=== PATIENT | male | born 1970 | race African-American/Black ===

== ENCOUNTER 2017-03-21 12:47 | Inpatient (IN) | payer OTHER ==
[2017-03-21] MEDS ORDERED: LORazepam INJ* 2 MG/ML 1 ML VIAL IV PUSH ONE (13:09)
[2017-03-21 13:18] LABS: ABS Basophils 0 10^3/ul (0-0.2); ABS Eosinophils 0.3 10^3/ul (0-0.6); ABS Lymphocytes 2.9 10^3/ul (1.0-4.8); ABS Monocytes 0.7 10^3/ul (0-0.8); ABS Neutrophils 8.8 10^3/ul (1.5-7.7); ABS Nucleated RBC 0.01 10^3/ul; Eosinophil % 2.6 % (0-6); Hematocrit 41 % (42-52); Hemoglobin 13.7 g/dl (14.0-18.0); Lymphocyte % 22.6 % (25-47); Mean Corpuscular HGB Conc 34 g/dl (31-36); Mean Corpuscular Hemoglobin 34 pg (27-31); Mean Corpuscular Volume 102 fL (80-94); Mean Platelet Volume 8 um3 (7.4-10.4); Nucleated Red Blood Cells % 0; Platelet Count 228 10^3/ul (150-450); Red Blood Count 4.01 10^6/ul (4.0-5.4); Red Cell Distribution Width 14 % (10.5-15); White Blood Count 12.7 10^3/ul (3.5-10.8)
[2017-03-21 13:36] LABS: Urine Appearance Clear; Urine Blood Negative (Negative); Urine Color Straw; Urine Ketones Negative (Negative); Urine Protein Negative (Negative); Urine Specific Gravity 1.006 (1.010-1.030); Urine Urobilinogen Negative (Negative)
[2017-03-21 13:47] LABS: EGFR Non-African American 67.1 (>60)
[2017-03-21] MEDS ORDERED: Ammonia Inhalant* 1 EA AMP ONE (14:51)
--- NOTE | 2017-03-21 15:04 | RAD ---
INDICATION: Suspected foreign body in rectum. COMPARISON: None TECHNIQUE: A single AP view the abdomen was obtained. FINDINGS: No foreign body is identified. There are no acute bony or soft tissue abnormalities. The bowel gas pattern is normal. There is a moderate amount of stool overlying the renal shadows. IMPRESSION: NORMAL RADIOGRAPH WITHOUT IDENTIFICATION OF A RECTAL FOREIGN BODY.
--- NOTE | 2017-03-21 15:06 | RAD ---
INDICATION: Altered mental status. COMPARISON: None. TECHNIQUE: Single AP portable view of the chest was obtained. FINDINGS: Image quality is compromised due to the relative inferiority of a portable chest x-ray. The heart and mediastinum exhibit normal size and contour. The pulmonary vasculature appears engorged and indistinct but this may be secondary to incomplete inspiratory effort. There is no large consolidation or obscuration of either costophrenic angle or the diaphragm. IMPRESSION: Appearance of vague density in the vascular congestion may be due to incomplete inspiratory effort. Please correlate to any respiratory symptoms.
--- NOTE | 2017-03-21 15:15 | RAD ---
INDICATION: Altered mental status COMPARISON: None. TECHNIQUE: Contiguous axial sections of the brain were obtained from the skull base to the vertex without contrast. FINDINGS: The ventricles, cisterns and sulci are within normal limits. The woods-white matter differentiation is adequately maintained and there is no sulcal effacement. No significant focal abnormality or mass effect is present. There is no evidence for intracranial hemorrhage. No significant focal osseous abnormality is present. There is a small focus of inspissated secretion on the dependent portion of the left maxillary sinus. The mastoid air cells are well aerated bilaterally. IMPRESSION: No acute intracranial abnormality.
--- NOTE | 2017-03-21 15:20 | RAD ---
CLINICAL HISTORY: Abdominal pain COMPARISON: None TECHNIQUE: Noncontrast CT examination of the abdomen and pelvis from the lung bases through the initial tuberosities. FINDINGS: VISUALIZED LUNG BASES: There are hypoventilatory changes the bilateral lung bases. There is no pleural effusion. ABDOMEN AND PELVIS: Evaluation of the solid organs and vasculature is limited without intravenous contrast. The liver, spleen, pancreas and adrenal glands are grossly normal in appearance. The gallbladder is normal. The kidneys are normal in appearance without focal mass, calcification or signs of hydronephrosis. Evaluation of the bowel is limited without oral contrast. The small and large bowel are not distended. The appendix measures up to 8 mm in diameter with hyperattenuating material in the distal tip (axial image 58 and coronal image 37) but there are no periappendiceal inflammatory changes to indicate acute appendicitis. The gas and stool-filled colon is normal in appearance. No foreign body is identified in the rectum. There is no gross retroperitoneal or mesenteric lymphadenopathy. The pelvic viscera is normal in appearance. The mildly calcified abdominal aorta and iliac arteries are normal in course and diameter. Degenerative changes include multilevel loss of intervertebral disc height involving the lower thoracic and lumbar spine as well as vacuum disc phenomenon at L3/L4 and L4/L5. IMPRESSION: 1. No CT apparent acute abnormality within the limitations of a noncontrast CT examination. 2. No rectal foreign body is seen. 3. Hypoventilatory changes at the bilateral lung bases. Please correlate to any respiratory symptoms.
[2017-03-21] MEDS ORDERED: NS 0.9% 1000 ML* 1,000 ML IV SCH (17:15)
[2017-03-21] MEDS ORDERED: LORazepam INJ* 2 MG/ML 1 ML VIAL IV PUSH PRN (17:15)
--- NOTE | 2017-03-21 21:08 | HP ---
CC: Dr. Hernandez / [place] * HISTORY AND PHYSICAL: DATE OF ADMISSION: 03/21/17 PRIMARY CARE PROVIDER: Dr. Hernandez. CHIEF COMPLAINT: Altered mental status/unresponsiveness. HISTORY OF PRESENT ILLNESS: Mr. Bernard is a 46-year-old male, currently incarcerated at [facility], who on the morning of admission was found "posturing and unresponsive in his cell." The patient was given Narcan x2 with no effect. The patient initially upon presentation to the emergency room showed no visual or verbal response; however, when tactile stimulus was initiated, the patient would "curl up into a ball." The patient is unable to provide really any unreliable history initially; however, the patient after my initial evaluation was found sitting up in bed with his eyes open. I asked frankly if the patient had used drugs or swallowed something he was not supposed to earlier today and he stated no ma'am. The patient is unable to provide any further history. PAST MEDICAL HISTORY: Hypertension. PAST SURGICAL HISTORY: Unknown. MEDICATIONS: 1. Hydrochlorothiazide 12.5 mg p.o. daily. 2. Amitriptyline 25 mg p.o. q.h.s. 3. Amlodipine 5 mg p.o. daily. 4. Naproxen 500 mg p.o. twice daily p.r.n. pain. ALLERGIES: No known drug allergies. FAMILY HISTORY: Unobtainable. SOCIAL HISTORY: The patient is incarcerated at [facility]. REVIEW OF SYSTEMS: Unobtainable from the patient due to being unresponsive. PHYSICAL EXAMINATION GENERAL: The patient is a well-developed middle-aged male, lying flat in the stretcher. He opens his eyes to verbal and tactile stimulus, appears to look around, promptly closes his eyes and is otherwise in no acute distress. VITAL SIGNS: Blood pressure 125/86, pulse 75, respirations 16, temperature 97.6 , O2 sat 100% on room air. HEENT: Pupils are equal, they are round. Extraocular muscles appear to be intact. Oropharynx is unable to be examined as the patient has his mouth closed. He does have mild amount of foaming at his lips. There is no submandibular, cervical or supraclavicular adenopathy. Thyroid is not enlarged. No thyroid nodules are noted. PULMONARY: Lungs are clear to auscultation anteriorly. CARDIAC: Normal S1 and S2. Regular rate and rhythm. I do not appreciate any murmurs. ABDOMEN: Bowel sounds are present. Abdomen is soft, nontender, and nondistended. MUSCULOSKELETAL: There is no cyanosis or clubbing of the digits. Initially, the patient has no movement of the extremities, as he is unresponsive; however, on subsequent evaluation, the patient was found sitting up in bed, scotching himself to the end of the stretcher. SKIN: Appears to be warm and dry. NEURO: The patient initially does not cooperate on exam, but then is able to sit himself up despite being handcuffed at the wrist and ankles. PSYCH: The patient initially is unresponsive, then becomes moderately responsive. DIAGNOSTIC STUDIES/LAB DATA: WBC 12.7, hemoglobin 13.7, hematocrit 41, and platelets 228. Sodium 144, potassium 4.4, chloride 101, CO2 of 30, BUN 12, creatinine 1.17, glucose 110, lactic acid 1.4, calcium 8.8. Bilirubin 0.5, AST 20, ALT 21, alk phos 66, troponin 0.03, albumin 4.2. Urinalysis reveals specific gravity of 1.006 and otherwise negative. Urine drug screen negative. Alcohol less than 10. Acetaminophen less than 15. Salicylate less than 2.5. VBG: pH 7.32/59/54. EKG reveals normal sinus rhythm with prolonged VT interval and no acute ST-T wave abnormalities. Chest x-ray: Appearance of vague vascular congestion, which may be due to the presence of incomplete inspiratory effort. CT brain, no acute intracranial abnormality. CT abdomen and pelvis, no CT apparent acute abnormality within limitations of noncontrast CT scan. No foreign body in the rectum is identified. Hypoventilatory changes at the bilateral bases. ASSESSMENT AND PLAN: Mr. Bernard is a 46-year-old male, currently incarcerated at [facility], who was admitted to [facility] after presenting to the emergency room after being found unresponsive in his cell at [place]. 1. Unresponsive. The patient's mental status is slightly improving as the day progresses. Initially, he would not even open his eyes to verbal or tactile stimulus. At this point, the patient does open his eyes. He was found once trying to sit up in bed. The patient was able to vocalize yes ma'am and no ma' am to me twice, but otherwise got no response. There is no clear signs of infection or other source for his unresponsiveness. There were concerns that perhaps the patient used drugs or ingested something he was not supposed to. The patient denies this and his urine tox screen is negative. The patient will also have an urgent EEG performed to rule out status epilepticus. The patient will be monitored in the intensive care unit overnight. 2. Hypertension. The patient's hydrochlorothiazide will be held. Amlodipine 5 mg p.o. daily will be continued. 3. DVT prophylaxis. According to the Adult Thrombosis Prophylaxis Risk Factor Assessment Guide, the patient has a total risk factor score of 2, making him moderate risk. He will be placed on heparin 5000 units subcutaneous q.8 hours. 5. Code status is full. TIME SPENT: Sixty-five minutes was spent admitting this patient. [id number]/[facility] #: [id number] BRITTANI
[2017-03-21] MEDS: Heparin VIAL(*) 5000 UNITS/ML VIAL (FIVE THOUSAND) SUBCUT SCH (22:27)
[2017-03-22] MEDS: Heparin VIAL(*) 5000 UNITS/ML VIAL (FIVE THOUSAND) SUBCUT SCH (06:37)
--- NOTE | 2017-03-22 08:09 | PN ---
Subjective Date of Service: 03/22/17 Interval History: Pt is feeling ok this AM. He does not remember what happened yesterday. He again states he did not use any drugs. He has no pain, SOB or other issues at this time. Objective Active Medications: Amlodipine Besylate (Norvasc Tab*) 5 mg PO DAILY [facility] Heparin Sodium (Porcine) (Heparin Vial(*)) 5,000 units SUBCUT Q8HR [facility] Last Admin: 03/22/17 06:37 Dose: 5,000 units Hydrochlorothiazide (Hydrodiuril Tab*) 12.5 mg PO DAILY [facility] Sodium Chloride (Ns 0.9% 1000 Ml*) 1,000 mls @ 100 mls/hr IV PER RATE [facility] Last Admin: 03/21/17 18:26 Dose: 100 mls/hr Lorazepam (Ativan Inj*) 1 mg IV PUSH Q6H PRN PRN Reason: ANXIETY Vital Signs - 8 hr 03/22/17 03/22/17 03/22/17 00:15 00:30 00:45 Temperature Pulse Rate 72 70 70 Respiratory 10 7 6 Rate Blood Pressure 132/99 137/94 125/90 (mmHg) O2 Sat by Pulse 98 99 97 Oximetry 03/22/17 03/22/17 03/22/17 01:00 01:01 01:15 Temperature Pulse Rate 70 66 67 Respiratory 13 16 0 Rate Blood Pressure 138/99 142/97 (mmHg) O2 Sat by Pulse 97 97 98 Oximetry 03/22/17 03/22/17 03/22/17 01:31 01:45 02:00 Temperature Pulse Rate 69 65 73 Respiratory 13 8 10 Rate Blood Pressure 148/81 140/98 139/100 (mmHg) O2 Sat by Pulse 100 98 98 Oximetry 03/22/17 03/22/17 03/22/17 02:01 02:15 02:32 Temperature Pulse Rate 78 66 72 Respiratory 11 3 9 Rate Blood Pressure 142/108 135/87 (mmHg) O2 Sat by Pulse 98 97 98 Oximetry 03/22/17 03/22/17 03/22/17 02:45 03:00 03:01 Temperature Pulse Rate 69 66 76 Respiratory 6 11 10 Rate Blood Pressure 138/98 122/109 (mmHg) O2 Sat by Pulse 96 98 Oximetry 03/22/17 03/22/17 03/22/17 03:16 03:30 03:46 Temperature Pulse Rate 73 71 60 Respiratory 10 16 12 Rate Blood Pressure 177/113 154/98 (mmHg) O2 Sat by Pulse 99 97 96 Oximetry 03/22/17 03/22/17 03/22/17 04:00 04:01 04:16 Temperature 98.7 F Pulse Rate 69 68 Respiratory 11 13 9 Rate Blood Pressure 145/91 135/101 (mmHg) O2 Sat by Pulse 97 98 Oximetry 03/22/17 03/22/17 03/22/17 04:31 04:46 05:00 Temperature Pulse Rate 65 67 Respiratory 13 12 13 Rate Blood Pressure 145/105 155/109 (mmHg) O2 Sat by Pulse 96 99 Oximetry 03/22/17 03/22/17 03/22/17 05:01 05:16 05:31 Temperature Pulse Rate 66 71 75 Respiratory 12 12 25 Rate Blood Pressure 142/104 (mmHg) O2 Sat by Pulse 96 98 94 Oximetry 03/22/17 03/22/17 03/22/17 05:46 06:00 06:01 Temperature Pulse Rate 67 70 70 Respiratory 12 11 12 Rate Blood Pressure 126/101 141/100 (mmHg) O2 Sat by Pulse 98 96 98 Oximetry 03/22/17 03/22/17 03/22/17 06:16 06:30 07:24 Temperature 98.4 F Pulse Rate 74 72 Respiratory 12 10 Rate Blood Pressure 133/96 148/103 (mmHg) O2 Sat by Pulse 99 97 Oximetry Oxygen Devices in Use Now: None Appearance: Middle aged male sitting up in bed, handcuffed at wrists and ankles , NAD Eyes: No Scleral Icterus Ears/Nose/Mouth/Throat: Mucous Membranes Moist Respiratory: Symmetrical Chest Expansion and Respiratory Effort, Clear to Auscultation Cardiovascular: NL Sounds; No Murmurs; No JVD, RRR, No Edema Abdominal: NL Sounds; No Tenderness; No Distention Extremities: No Clubbing, Cyanosis Skin: No Rash or Ulcers Neurological: Alert and Oriented x 3 Result Diagrams: 03/21/17 13:12 03/21/17 13:12 Microbiology and Other Data: Microbiology 03/21/17 18:00 Nasal Screen MRSA (PCR)(KAYLYN) - Final Nasal Mrsa Negative Assess/Plan/Problems-Billing Mr Bernard is a 46 yo M currently incarcerated at [place] who has a h/o HTN was brought to the ER after being found unresponsive in his cell on the morning of admission. - Patient Problems (1) Unresponsive episode Current Visit: Yes Status: Acute Comment: The etiology is not clear. His lab work showed a mildly elevated WBC count but other signs of infection. His urine drug screen was negative however it is possible he used a drug that would not be picked up on the screen but the patient denies any drug use. His ammonia level was mildly elevated but this AM despite no treatment for the elevated ammonia he is alert and oriented. CT brain negative. I am most suspicous the patient took a drug or medication that led to his unresponsiveness. At this time the patient is appearing to be back to baseline. Will recheck the CBC this AM to ensure it has trended down and if that is the case he can return to the group home today. (2) HTN (hypertension) Current Visit: Yes Status: Acute Code(s): I10 - ESSENTIAL (PRIMARY) HYPERTENSION SNOMED Code(s): 68504171 Comment: BP is moderately elevated currently. He will continue with his usual medication regimen of amlodipine and HCTZ. (3) Low TSH level Current Visit: Yes Status: Acute Code(s): R94.6 - ABNORMAL RESULTS OF THYROID FUNCTION STUDIES SNOMED Code(s): 599869112 Comment: The patient's TSH was found to be very low at 0.06 however his free T4 is low normal at 0.61. No overt signs of hyperthyroidism. Will have repeat TSH and free T4 checked in 2-4 weeks. (4) DVT prophylaxis Current Visit: Yes Status: Acute Code(s): WKO2634 - SNOMED Code(s): 762024392 Comment: SQ heparin (5) Full code status Current Visit: Yes Status: Acute Code(s): Z78.9 - OTHER SPECIFIED HEALTH STATUS SNOMED Code(s): 275099228
[2017-03-22 08:22] LABS: Hematocrit 42 % (42-52); Hemoglobin 14.2 g/dl (14.0-18.0); Mean Corpuscular HGB Conc 34 g/dl (31-36); Mean Corpuscular Hemoglobin 34 pg (27-31); Mean Corpuscular Volume 102 fL (80-94); Mean Platelet Volume 8 um3 (7.4-10.4); Platelet Count 210 10^3/ul (150-450); Red Blood Count 4.16 10^6/ul (4.0-5.4); Red Cell Distribution Width 13 % (10.5-15); White Blood Count 9.5 10^3/ul (3.5-10.8)
[2017-03-22] MEDS ORDERED: Hydrochlorothiazide TAB* 25 MG PO SCH (09:00)
[2017-03-22] MEDS ORDERED: amLODIPine TAB* 5 MG PO SCH (09:00)
[2017-03-22 09:30] VITALS: BP 160/110
--- NOTE | 2017-03-22 20:12 | EEG ---
ELECTROENCEPHALOGRAPHY: DATE OF STUDY: 03/21/17 LOCATION: The patient is in the ICU. REQUESTING PHYSICIAN: Dr. Smallwood. CLINICAL PROBLEM: This is a 46-year-old man admitted from [facility]. He was reportedly found down at the facility this morning with posturing and unresponsiveness. At 10 o'clock this morning, he received Narcan without any positive response. Upon arrival to the ER, he remained largely unresponsive. He became somewhat responsive shortly before 5 p.m., but EEG was requested to evaluate for status epilepticus or intermittent seizures given unexplained responsiveness. MEDICATIONS: 1. Amlodipine. 2. Heparin. 3. Lorazepam. REPORT: The waking background showed discernible organization in terms of anterior to posterior voltage and frequency gradients. There was an intermittently observable posterior rhythm of approximately 7 Hz, which was symmetrical. Centrally, there was higher voltage, polymorphic slowing in the 5- 6 Hz range. A more alert state was denoted by increased muscle artifact as well as some emergence of faster frequency activity, but the centrally predominant slowing previously mentioned persisted. Throughout the recording, there were no epileptiform discharges or seizures noted. CLINICAL IMPRESSION: This is an abnormal waking EEG due to the presence of slowing of the background with superimposed excessive slowing in the midline. These findings are suggestive of a mild, nonspecific, diffuse encephalopathy with superimposed neuronal dysfunction in the central region. There are no epileptiform abnormalities or seizures noted during this recording. [id number]/[facility] #: [id number] MTDD
--- NOTE | 2017-03-23 14:14 | DS ---
CC: Dr. Hernandez at [place] * DISCHARGE SUMMARY: DATE OF ADMISSION: 03/21/17 DATE OF DISCHARGE: 03/22/17 PRIMARY CARE PROVIDER: Dr. Hernandez at [facility]. PRINCIPLE DIAGNOSIS: Altered mental status with unclear etiology. SECONDARY DIAGNOSIS: Hypertension. HOSPITAL COURSE: Mr. Bernard is a 46-year-old male who was found unresponsive in his cell on the morning of 03/21/17. He received 2 doses of Narcan and despite this had no improvement in his mental status and therefore was brought to the emergency room for evaluation. Upon my evaluation of the patient in the ER, the patient was minimally responsive, opening his eyes when I called his name; however, did nothing more than that. The patient was admitted to the intensive care unit for evaluation and monitoring of his altered mental status. Given the fact that he had been altered all day long and having sonorous respirations, the decision was made to have the patient undergo urgent EEG monitoring. The patient's EEG was verbally told to me by Dr. De Leon to show some mild slowing but no clear epileptiform discharges and no evidence of a postictal state. The patient underwent CT scan of the brain, which did not reveal any acute findings and his lab work was unrevealing aside of a mildly elevated white blood cell count. There was concern that the patient may have ingested a packet of drugs and therefore he underwent a CT scan of his abdomen and pelvis. This did not reveal any evidence of drug packets within his colon or rectum. The patient had a urine drug screen which was negative; however, as he improved over the course of the evening and was essentially back to baseline on the day of discharge, I am suspicious that perhaps it was a drug ingestion that led to his altered mental status. The patient is now back to his baseline awake, alert, and oriented. The patient did have a mildly elevated ammonia level of 56 in the emergency room; however, despite not treating this the patient's mental status improved. Therefore I did not think that the elevated ammonia level was likely the cause of his altered mental status. The patient's white blood cell count normalized without any antibiotic therapy. Of note, the patient was found to have a very low TSH of 0.06. A free T4 was checked and at the low end of normal at 0.61. I question if this may be subclinical hyperthyroidism. I recommend that patient have a followup TSH and free T4 checked in 2 to 4 weeks to reevaluate these values. At this point, as the patient is back to his normal mental status, he will be discharged back to [facility] today. FOLLOWUP CONCERNS: Activity level is as tolerated. Diet is regular. Condition on discharge is stable. TIME SPENT: Twenty five minutes was spent discharging this patient. [id number]/[facility] #: [id number] BRITTANI
--- NOTE | 2017-03-26 10:55 | ED ---
Abby Barone Abhishek, scribed for Shukri Whittington MD on 03/21/17 at 1407 . Altered Mental Status - HPI Summary HPI Summary: LEVEL 5 CAVEAT - Altered mental State; Unable to obtain HPI from patient. 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 The history is reported by the [facility] correctional services and EMS reports due to the patients unresponsiveness. Pt is in full shackles and is unresponsive to verbal/visual responses. [facility] correctional services state pt was given Narcan with no change. risk control officer states the patient moves at random points throughout altered mental state. Pt is physically combative with pain. EMS report states that pt was clenching his body. Pt responds to palpation with moaning. Pt does not respond to ED physicians questions - History Of Current Complaint Chief Complaint: EDAltMentalStatus Stated Complaint: POSSIBLE OVERDOSE Time Seen by Provider: 03/21/17 12:50 Hx Obtained From: EMS, Other: - Police officers Hx From Patient Unobtainable Due To: Altered Mental Status Onset/Duration: Still Present Timing: Constant Aggravating Factor(s): Unknown Alleviating Factor(s): Unknown - Allergies/Home Medications Allergies/Adverse Reactions: Allergies Allergy/AdvReac Type Severity Reaction Status Date / Time No Known Allergies Allergy Verified 03/21/17 12:53 Home Medications: Home Medications Amitriptyline TAB* [Elavil TAB*] 25 mg PO BEDTIME 03/21/17 [History Confirmed ] Hydrochlorothiazide TAB* [Hydrodiuril TAB*] 12.5 mg PO DAILY 03/21/17 [History Confirmed 03/21/17] Naproxen TAB* [Naprosyn 250 mg TAB*] 500 mg PO BID PRN 03/21/17 [History Confirmed 03/21/17] amLODIPine TAB* [Norvasc 5 mg TAB*] 5 mg PO DAILY 03/21/17 [History Confirmed ] PMH/Surg Hx/FS Hx/Imm Hx Previously Healthy: No - LEVEL 5 CAVEAT - Altered Mental Status Psychiatric History: Reports: Hx Substance Abuse - Marijuana Infectious Disease History: No Infectious Disease History: Denies: Traveled Outside the [place] in Last 30 Days - Family History Family History: LEVEL 5 CAVEAT - Altered Mental State - Social History Alcohol Use: Rare Substance Use Type: Reports: Marijuana Substance Use Comment - Amount & Last Used: k2 Smoking Status (MU): Light Every Day Tobacco Smoker - Additional Comments History Additional Comments: LEVEL 5 CAVEAT - Altered mental State (03/21/17) Unable to obtain PMHx/ FHx/ SHx from patient Information obtained through previous reports Review of Systems - ROS Summary Review of Systems Summary: LEVEL 5 CAVEAT - Altered mental State Constitutional: Negative Eyes: Negative ENT: Negative Cardiovascular: Negative Respiratory: Negative Gastrointestinal: Negative Genitourinary: Negative Musculoskeletal: Negative Skin: Negative Neurological: Other - LOC Psychological: Other - Altered mental state All Other Systems Reviewed And Are Negative: Yes Physical Exam - Summary Physical Exam Summary: LEVEL 5 CAVEAT - Altered mental State Constitutional: Well-developed, Skin: Warm, Dry HENT: Normocephalic; Atraumatic, Gritting teeth, Eyes: Conjunctiva normal, Pupils are 4 mm and unreactive bilaterally Neck: Musculoskeletal ROM normal neck. (-) JVD, (-) Stridor, (-) Tracheal deviation Cardio: Rhythm regular, rate normal, Heart sounds normal; Intact distal pulses; The pedal pulses are 2+ and symmetric. Radial pulses are 2+ and symmetric. (-) Murmur Pulmonary/Chest wall: Effort normal. (-) Respiratory distress, (-) Wheezes, (-) Rales Abd: Soft, (-) Tenderness, (-) Distension, (-) Guarding, (-) Rebound Musculoskeletal: (-) Edema, Mildly increased muscle tone Lymph: (-) Cervical adenopathy Psych: Moaning and snarling at different points Rectal: Digital rectal exam shows there is a palpable object that does not feel like stool at the very distal finger length. Triage Information Reviewed: Yes Vital Signs On Initial Exam: Initial Vitals Temp Pulse Resp BP Pulse Ox 97.6 F 89 15 124/53 94 03/21/17 12:48 03/21/17 12:48 03/21/17 12:48 03/21/17 12:48 03/21/17 12:48 Vital Signs Reviewed: Yes - Adia Coma Scale Coma Scale Total: 9 Diagnostics - Vital Signs Vital Signs Temp Pulse Resp BP Pulse Ox 03/21/17 13:45 80 95 03/21/17 13:18 16 03/21/17 12:48 97.6 F 89 15 124/53 94 - Laboratory Lab Results: Lab Results 03/21/17 03/21/17 03/21/17 Range/Units 13:12 13:12 13:12 WBC 12.7 H (3.5-10.8) 10^3/ul RBC 4.01 (4.0-5.4) 10^6/ul Hgb 13.7 L (14.0-18.0) g/dl Hct 41 L (42-52) % MCV 102 H (80-94) fL MCH 34 H (27-31) pg MCHC 34 (31-36) g/dl RDW 14 (10.5-15) % Plt Count 228 (150-450) 10^3/ul MPV 8 (7.4-10.4) um3 Neut % (Auto) 69.5 (38-83) % Lymph % (Auto) 22.6 L (25-47) % [place] % (Auto) 5.1 (1-9) % Eos % (Auto) 2.6 (0-6) % Baso % (Auto) 0.2 (0-2) % Absolute Neuts (auto) 8.8 H (1.5-7.7) 10^3/ul Absolute Lymphs (auto) 2.9 (1.0-4.8) 10^3/ul Absolute Monos (auto) 0.7 (0-0.8) 10^3/ul Absolute Eos (auto) 0.3 (0-0.6) 10^3/ul Absolute Basos (auto) 0 (0-0.2) 10^3/ul Absolute Nucleated RBC 0.01 10^3/ul Nucleated RBC % 0 VBG pH (7.33-7.43) VBG pCO2 (41-51) mmHg VBG pO2 (35-45) mmHg VBG HCO3 (24-28) mmol/L VBG O2 Saturation (70-80) % VBG Base Excess (0-4) Sodium 144 (133-145) mmol/L Potassium 4.4 (3.5-5.0) mmol/L Chloride 110 (101-111) mmol/L Carbon Dioxide 30 (22-32) mmol/L Anion Gap 4 (2-11) mmol/L BUN 12 (6-24) mg/dL Creatinine 1.17 (0.67-1.17) mg/dL Est GFR ( Amer) 86.3 (>60) Est GFR (Non-Af Amer) 67.1 (>60) BUN/Creatinine Ratio 10.3 (8-20) Glucose 110 H (70-100) mg/dL Lactic Acid 1.4 (0.5-2.0) mmol/L Calcium 8.8 (8.6-10.3) mg/dL Total Bilirubin 0.50 (0.2-1.0) mg/dL AST 20 (13-39) U/L ALT 21 (7-52) U/L Alkaline Phosphatase 66 (34-104) U/L Troponin I 0.03 (<0.04) ng/mL Total Protein 7.0 (6.4-8.9) g/dL Albumin 4.2 (3.2-5.2) g/dL Globulin 2.8 (2-4) g/dL Albumin/Globulin Ratio 1.5 (1-3) Urine Color Urine Appearance Urine pH (5-9) Ur Specific [place] (1.010-1.030) Urine Protein (Negative) Urine Ketones (Negative) Urine Blood (Negative) Urine Nitrate (Negative) Urine Bilirubin (Negative) Urine Urobilinogen (Negative) Ur Leukocyte Esterase (Negative) Urine Glucose (Negative) Salicylates < 2.50 (<30) mg/dL Urine Opiates Screen (None Detect) Acetaminophen < 15 mcg/mL Ur Barbiturates Screen (None Detect) Ur Phencyclidine Scrn (None Detect) Ur Amphetamines Screen (None Detect) U Benzodiazepines Scrn (None Detect) Urine Cocaine Screen (None Detect) U Cannabinoids Screen (None Detect) Serum Alcohol < 10 (<10) mg/dL 03/21/17 03/21/17 03/21/17 Range/Units 13:26 13:26 13:33 WBC (3.5-10.8) 10^3/ul RBC (4.0-5.4) 10^6/ul Hgb (14.0-18.0) g/dl Hct (42-52) % MCV (80-94) fL MCH (27-31) pg MCHC (31-36) g/dl RDW (10.5-15) % Plt Count (150-450) 10^3/ul MPV (7.4-10.4) um3 Neut % (Auto) (38-83) % Lymph % (Auto) (25-47) % [place] % (Auto) (1-9) % Eos % (Auto) (0-6) % Baso % (Auto) (0-2) % Absolute Neuts (auto) (1.5-7.7) 10^3/ul Absolute Lymphs (auto) (1.0-4.8) 10^3/ul Absolute Monos (auto) (0-0.8) 10^3/ul Absolute Eos (auto) (0-0.6) 10^3/ul Absolute Basos (auto) (0-0.2) 10^3/ul Absolute Nucleated RBC 10^3/ul Nucleated RBC % VBG pH 7.32 L (7.33-7.43) VBG pCO2 59 H (41-51) mmHg VBG pO2 54 H (35-45) mmHg VBG HCO3 26.7 (24-28) mmol/L VBG O2 Saturation 89.7 H (70-80) % VBG Base Excess 2.8 (0-4) Sodium (133-145) mmol/L Potassium (3.5-5.0) mmol/L Chloride (101-111) mmol/L Carbon Dioxide (22-32) mmol/L Anion Gap (2-11) mmol/L BUN (6-24) mg/dL Creatinine (0.67-1.17) mg/dL Est GFR ( Amer) (>60) Est GFR (Non-Af Amer) (>60) BUN/Creatinine Ratio (8-20) Glucose (70-100) mg/dL Lactic Acid (0.5-2.0) mmol/L Calcium (8.6-10.3) mg/dL Total Bilirubin (0.2-1.0) mg/dL AST (13-39) U/L ALT (7-52) U/L Alkaline Phosphatase (34-104) U/L Troponin I (<0.04) ng/mL Total Protein (6.4-8.9) g/dL Albumin (3.2-5.2) g/dL Globulin (2-4) g/dL Albumin/Globulin Ratio (1-3) Urine Color Straw Urine Appearance Clear Urine pH 7.0 (5-9) Ur Specific [place] 1.006 L (1.010-1.030) Urine Protein Negative (Negative) Urine Ketones Negative (Negative) Urine Blood Negative (Negative) Urine Nitrate Negative (Negative) Urine Bilirubin Negative (Negative) Urine Urobilinogen Negative (Negative) Ur Leukocyte Esterase Negative (Negative) Urine Glucose Negative (Negative) Salicylates (<30) mg/dL Urine Opiates Screen None detected (None Detect) Acetaminophen mcg/mL Ur Barbiturates Screen None detected (None Detect) Ur Phencyclidine Scrn None detected (None Detect) Ur Amphetamines Screen None detected (None Detect) U Benzodiazepines Scrn None detected (None Detect) Urine Cocaine Screen None detected (None Detect) U Cannabinoids Screen None detected (None Detect) Serum Alcohol (<10) mg/dL Result Diagrams: 03/21/17 13:12 03/21/17 13:12 Lab Statement: Any lab studies that have been ordered have been reviewed, and results considered in the medical decision making process. - Radiology Chest X-ray Radiology Interpretation Completed By: Radiologist - CXR reveals, per radiologist, Appearance of vague density in the vascular congestion may be due to incomplete inspiratory effort. Please correlate to any respiratory symptoms. ED Physician has reviewed the radiology report. Abd X-ray Radiology Interpretation Completed By: Radiologist - Abd X-ray reveals NORMAL RADIOGRAPH WITHOUT IDENTIFICATION OF A RECTAL FOREIGN BODY. ED Physician has reviewed the radiology report. - CT CT A/P CT Interpretation Completed By: Radiologist - CT A/P reveals 1. No CT apparent acute abnormality within the limitations of a noncontrast CT examination. 2. No rectal foreign body is seen. 3. Hypoventilatory changes at the bilateral lung bases. Please correlate to any respiratory symptoms. ED physician has reviewed this radiology report. Brain CT CT Interpretation Completed By: Radiologist - Brain CT reveals No acute intracranial abnormality. ED physician has reviewed this radiology report and agrees. - EKG 1317 EKG Rhythm: Sinus Rhythm - [address] Segment: Normal EKG Interpretation: An EKG at 1317 shows negative STEMI Re-Evaluation - Re-Evaluation 1311 Re-Evaluation Time: 13:11 Comment: Pt is having Rhythmic contractions of his arms. Protecting his airway. Altered Mental Statu Course/Dx - Course Course Of Treatment: LEVEL 5 CAVEAT - Altered Mental Status. 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 The history is reported by the [facility] correctional services and EMS reports due to the patients unresponsiveness. Pt is in full shackles and is unresponsive to verbal/visual responses. [facility] correctional services state pt was given Narcan with no change. risk control officer states the patient moves at random points throughout altered mental state. Pt is physically combative with pain. EMS report states that pt was clenching his body. Pt responds to palpation with moaning. Pt does not respond to ED physicians questions CT A/P reveals 1. No CT apparent acute abnormality within the limitations of a noncontrast CT. examination. 2. No rectal foreign body is seen. 3. Hypoventilatory changes at the bilateral lung bases. Please correlate to any. respiratory symptoms. ED physician has reviewed this radiology report and agrees. CXR reveals, per radiologist, Appearance of vague density in the vascular congestion may be due to. incomplete inspiratory effort. Please correlate to any respiratory symptoms. ED physician has reviewed this radiology report and agrees. Brain CT reveals No acute intracranial abnormality. ED physician has reviewed this radiology report and agrees. Abd X -ray reveals NORMAL RADIOGRAPH WITHOUT IDENTIFICATION OF A RECTAL FOREIGN BODY. ED physician has reviewed this radiology report and agrees. An EKG at 1317 shows negative STEMI and sinus rhythm at [address] Howe at 1330 and she states that if the Pt does not have any indication of bowel obstruction. That it is contraindicative to remove drug packets due to the risk of perforation. He recommended laxatives and hospital admission. He will be viable for hospital services consult. We discussed patient care with Dr. Guy at 1547 and he accepts patient admittance into the ICU for neurological monitoring. The Dx will be suspected drug ingestion and altered mental status. - Diagnoses Discharge Diagnoses: Altered mental status, Drug ingestion - Provider Notifications Discussed Care Of Patient With: Tripp Guy - We discussed patient care and he accepts patient for admittance into the [facility] ICU for neurological monitoring. Time Discussed With Above Provider: 15:47 Instructed by Provider To: Admit As Inpatient - ICU Discharge - Discharge Plan Condition: Stable Disposition: ADMITTED TO [facility] Referrals: Hung ANDERSON,Saadia Walker [Primary Care Provider] - The documentation as recorded by the scribeAbby Abhishek accurately reflects the service I personally performed and the decisions made by me, Shukri Whittington MD.
== END 2017-03-22 12:57 | DRG 861 ==
LOC: ED 12:47 → ICU 17:03 → EEVIPCON 17:03
PROVIDERS: ADMIT Hospitalist; ATTEND Hospitalist
PROC: 4A00X4Z Measurement of Central Nervous Electrical Activity, External Approach (ICD-10-PCS; principal; 2017-03-21)
DX: R41.82 Altered mental status, unspecified (principal); D72.829 Elevated white blood cell count, unspecified; I10 Essential (primary) hypertension; R94.6 Abnormal results of thyroid function studies; T50.905A Adverse effect of unspecified drugs, medicaments and biological substances, initial encounter; Y92.89 Other specified places as the place of occurrence of the external cause
CPT/HCPCS: 36415; 70450; 71010; 74000; 74176; 80053; 80307; 80320; 80329; 81003; 82140; 82803; 83605; 84439; 84443; 84484; 85025; 85027; 87641; 93005; 95819; A9270-GY; G0480; J1644; J2060